=== PATIENT | male | born 1975 | race American Indian/Alaskan Native ===

== ENCOUNTER 2020-12-19 01:12 | Emergency (ER) | payer MEDICARE ==
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
[2020-12-19 04:17] VITALS: BP 152/98
== END 2020-12-19 04:10 | disposition home or self-care (01) ==
LOC: ED 01:12
DX: M54.40 Lumbago with sciatica, unspecified side (principal); G89.29 Other chronic pain; I10 Essential (primary) hypertension; R56.9 Unspecified convulsions
CPT/HCPCS: 99282